=== PATIENT | female | born 1950 | race Caucasian/White ===

== ENCOUNTER 2024-08-19 10:52 | Outpatient (CLI) | payer MEDICARE, MEDICAID ==
[~2024-08-19 10:52] MED LIST: ACET-75 PO; CHOL400T58 PO; ICOS1CAP PO; LACT1CAP65 PO; NAPR-1170 PO; PLAN450C PO; THYR180T2 PO; TRAM50TA2 PO
== END 2024-08-19 23:59 | disposition home or self-care (01) ==
LOC: VAS 10:52
PROVIDERS: ATTEND Surgery
DX: I73.9 Peripheral vascular disease, unspecified (principal)
CPT/HCPCS: 93922; 93926